=== PATIENT | male | born 1960 | race Caucasian/White ===

== ENCOUNTER 2017-08-19 07:46 | Day surgery (SDC) | payer OTHER ==
[2017-08-19] VITALS (8 sets, daily range): BP systolic 87–139; BP diastolic 53–94; PULSE 56–72; RESP 16–20; TEMP 97.4–98.4; O2SAT 94–98
[~2017-08-19] VITALS: Ht 172.7 cm; Wt 82.0 kg
[~2017-08-19 07:46] MED LIST: FOLI1TAB PO; METH2.5 PO; OMEP20CA5 PO; PERC5TAB12 PO; PROM25SU8 PO; ZEGE20CA PO
[2017-08-19] MEDS ORDERED: FOLI800T PO (08:15)
[2017-08-19] MEDS ORDERED: TOFA5TAB PO (08:15)
[2017-08-19] MEDS ORDERED: METH2.5T PO (08:15)
[2017-08-19] MEDS ORDERED: SODIUM CHLOR 0.9% 1000 ML IV SCH (08:30)
[2017-08-19 09:04] LABS: AUTOMATED NEUTROPHIL # 4.2 TH/MM3 (1.8-7.7); BASOPHIL % 0.2 % (0.0-2.0); EOSINOPHIL # 0.1 TH/MM3 (0-0.4); EOSINOPHIL % 2.2 % (0.0-4.0); HEMATOCRIT 44.1 % (39.0-51.0); HEMO FLAGS DIFF FINAL; LYMPH % 22.6 % (9.0-44.0); LYMPHOCYTE # 1.5 TH/MM3 (1.0-4.8); MEAN CORPUSCULAR HEMOGLOBIN 31.2 PG (27.0-34.0); MEAN CORPUSCULAR HGB CONC 32.9 % (32.0-36.0); PLATELET COUNT 138 TH/MM3 (150-450); RED BLOOD COUNT 4.64 MIL/MM3 (4.50-5.90); WHITE BLOOD COUNT 6.6 TH/MM3 (4.0-11.0)
[2017-08-19 09:10] LABS: APTT (PATIENT) 25.9 SEC (24.3-30.1); PROTHROMBIN TIME - PATIENT 10.5 SEC (9.8-11.6)
[2017-08-19] MEDS ORDERED: LIDOCAINE HCL 1% 20 ML VIAL ONE (10:04)
[2017-08-19] MEDS ORDERED: MIDAZOLAM HCL 5 MG/5 ML VIAL ONE (10:08)
--- NOTE | 2017-08-19 11:13 | PD.RAD ---
Post CT Procedure Prog Note Pre Procedure Diagnosis: (1) Mass of left lung Post Procedure Diagnosis: (1) Mass of left lung Procedure Date: Aug 19, 2017 Supervising Radiologist: Melecio Russo JR Anesthesia: Conscious Sedation Plan of Activity Patient to Unit: [facility] Patient Condition: Good See PACS Report for procedural detail/treatment Biopsy Imaging Guidance: CT Side: Left Biopsy Procedure: Lung Specimen: Core Biopsy Findings: 3 core samples of left upper lobe lung mass. No PTX or hemorrhage on post bx CT images Plan F/U with Dr Easton for results. Jr. Karan,Melecio Vaughn MD Aug 19, 2017 11:13
[2017-08-19] MEDS ORDERED: oxyCODONE/ACETAMINOPHEN 5 MG/325 MG TAB PO PRN (11:15)
--- NOTE | 2017-08-19 13:37 | RADRPT ---
EXAM DATE/TIME: 08/19/2017 13:06 [facility] COMPARISON: No previous studies available for comparison. INDICATIONS : Evaluate for pneumothorax. Status post left lung biopsy. MEDICAL HISTORY : None. SURGICAL HISTORY : None. ENCOUNTER: Initial ACUITY: 1 day PAIN SCORE: 0/10 LOCATION: chest FINDINGS: A single frontal expiratory view of the chest was performed. The lungs are symmetrically aerated and clear. No evidence of pneumothorax. Mediastinal structures are in the midline. The cardio-mediastinal contours and bronchopulmonary markings are unremarkable for an expiratory exam . Osseous structures are intact. CONCLUSION: Negative for pneumothorax. Teja Reyez MD FACR on August 19, 2017 at 13:35 Board Certified Radiologist. This report was verified electronically.
--- NOTE | 2017-08-19 15:57 | RADRPT ---
EXAM DATE/TIME: 08/19/2017 10:38 [facility] COMPARISON: No previous studies available for comparison. INDICATIONS : Left lung mass. SEDATION TIME: 30 minutes BIOPSY SITE: Left chest MEDICATION(S): 1.) 3.5 mg midazolam (Versed) IV 2.) 150 mcg fentanyl (Sublimaze) IV DEVICE(S): 1.) 19 gauge micropuncture introducer 2.) 20 gauge Temno core biopsy needle MEDICAL HISTORY : Rheumatoid arthritis. SURGICAL HISTORY : None. ENCOUNTER: Initial ACUITY: 1 day PAIN SCORE: 0/10 LOCATION: Left chest A total of three core specimen(s) were obtained and sent to the laboratory for pathologic evaluation. PROCEDURE: 1. CT guided lung biopsy. Prior to the procedure informed consent was obtained. Any appropriate prior imaging studies were rev iewed. A left upper lobe anterior lesion was targeted during the biopsy. This lesion measures approxi mately 4 x 3 cm. Using automated exposure control and adjustment of the mA and/or kV according to pat ient size, radiation dose was kept as low as reasonably achievable to obtain optimal diagnostic quali ty images. DICOM format image data is available electronically for review and comparison. The site was prepped in a sterile fashion. Full sterile technique was used, including cap, mask, greta rile gloves and gown and a large sterile sheet. Hand hygiene and 2% chlorhexidine and/or betadine/al cohol prep was utilized per protocol for cutaneous antisepsis. The skin and subcutaneous tissues wer e infiltrated with local anesthetic solution. With CT guidance the previously identified target was localized. Biopsy was performed using the presc ribed needle as above. Adequate hemostasis was obtained with compression at the puncture site. Follow-up CT scan reveals no pneumothorax. Conscious sedation was performed with the prescribed dosages and duration as above in the presence of an independent trained radiology nurse to assist in the monitoring of the patient. EKG and oximetry remained stable throughout the procedure. The patient tolerated the procedure well and there were no complications. The patient was sent to Radiology Outpatient Unit in stable condition. CONCLUSION: Uncomplicated CT guided biopsy of an anterior left upper lobe lesion. Melecio Russo Jr., MD on August 19, 2017 at 15:54 Board Certified Radiologist. This report was verified electronically.
== END 2017-08-19 15:30 | disposition home or self-care (01) ==
LOC: HRAD 07:46 → HRIP 07:47 → HRAD 15:30
PROVIDERS: ATTEND Internal Medicine Critical Care Medicine
DX: C34.12 Malignant neoplasm of upper lobe, left bronchus or lung (principal); J84.10 Pulmonary fibrosis, unspecified; M06.9 Rheumatoid arthritis, unspecified; Z01.818 Encounter for other preprocedural examination
CPT/HCPCS: 32405; 71010; 77012; 85025; 85610; 85730; 88305; 88341; 88342; J2250; J3010; J7030

== ENCOUNTER 2017-09-02 09:47 | Day surgery (SDC) | payer OTHER ==
[~2017-09-02 09:47] MED LIST changes: -FOLI1TAB PO; +FOLI800T PO; -METH2.5 PO; +METH2.5T PO; -OMEP20CA5 PO; -PERC5TAB12 PO; -PROM25SU8 PO; +TOFA5TAB PO; -ZEGE20CA PO
[2017-09-02 10:05] VITALS: BP 126/85; PULSE 65; RESP 18; TEMP 97.6; O2SAT 98
[2017-09-02] MEDS ORDERED: BOSW5TAB PO (10:09)
[2017-09-02] MEDS ORDERED: FISH1000 (10:09)
[2017-09-02] MEDS ORDERED: SODIUM CHLOR 0.9% 1000 ML IV SCH (11:00)
[2017-09-02] MEDS ORDERED: MIDAZOLAM HCL 2 MG/2 ML VIAL ONE (12:10)
[2017-09-02] MEDS ORDERED: LIDOCAINE 1%/EPINEPHrine 1:100,000 SOLN 20 ML VIAL ONE (12:37)
--- NOTE | 2017-09-02 12:49 | PD.RAD ---
Post CT Procedure Prog Note Pre Procedure Diagnosis: (1) Mass of left lung Post Procedure Diagnosis: (1) Mass of left lung Procedure Date: Sep 02, 2017 Supervising Radiologist: Remington Edward Anesthesia: Conscious Sedation Plan of Activity Patient to Unit: [facility] Patient Condition: Good See PACS Report for procedural detail/treatment Remington Edward MD Sep 02, 2017 12:49
[2017-09-02 13:00] VITALS: BP 118/63; PULSE 69; RESP 20; TEMP 97.7; O2SAT 98
[2017-09-02 13:15] VITALS: BP 105/58; PULSE 70; RESP 18; O2SAT 95
[2017-09-02 13:45] VITALS: BP 100/63; PULSE 70; RESP 20; O2SAT 97
--- NOTE | 2017-09-02 13:51 | RADRPT ---
EXAM DATE/TIME: 09/02/2017 12:26 [facility] COMPARISON: No previous studies available for comparison. INDICATIONS : PET positive right iliac bone mass SEDATION TIME: 15 minutes BIOPSY SITE: Right iliac MEDICATION(S): 1.) 3.5 mg midazolam (Versed) IV 2.) 175 mcg fentanyl (Sublimaze) IV DEVICE(S): 1.) 12 gauge On-Control needle MEDICAL HISTORY : Carcinoma, lung. SURGICAL HISTORY : None. ENCOUNTER: Initial ACUITY: 1 day PAIN SCORE: 0/10 LOCATION: Right iliac A total of one core specimen(s) were obtained and sent to the laboratory for pathologic evaluation. PROCEDURE: 1. CT guided iliac biopsy. Prior to the procedure informed consent was obtained. Any appropriate prior imaging studies were rev iewed. Using automated exposure control and adjustment of the mA and/or kV according to patient size, radiat ion dose was kept as low as reasonably achievable to obtain optimal diagnostic quality images. DICOM format image data is available electronically for review and comparison. The site was prepped in a sterile fashion. Full sterile technique was used, including cap, mask, greta rile gloves and gown and a large sterile sheet. Hand hygiene and 2% chlorhexidine and/or betadine/al cohol prep was utilized per protocol for cutaneous antisepsis. The skin and subcutaneous tissues wer e infiltrated with local anesthetic solution. With CT guidance the previously identified target was localized. Biopsy was performed using the presc ribed needle as above. Adequate hemostasis was obtained with compression at the puncture site. Follow-up CT scan reveals no hemorrhage or other complication. The patient tolerated the procedure well and there were no complications. The patient was returned to the Radiology Outpatient Unit in stable condition. CONCLUSION: Uncomplicated CT guided biopsy. Remington Edward MD on September 02, 2017 at 13:49 Board Certified Radiologist. This report was verified electronically.
[2017-09-02 14:15] VITALS: BP 117/64; PULSE 68; RESP 20; O2SAT 96
[2017-09-02 14:45] VITALS: BP 120/64; PULSE 80; RESP 20; O2SAT 96
== END 2017-09-02 15:15 | disposition home or self-care (01) ==
LOC: HRIP 09:47 → HRAD 09:47
PROVIDERS: ATTEND Internal Medicine Critical Care Medicine
DX: M89.9 Disorder of bone, unspecified (principal); Z85.118 Personal history of other malignant neoplasm of bronchus and lung
CPT/HCPCS: 20220; 77012; 88305; 88341; 88342; 99152; J2250; J3010; J7030

== ENCOUNTER 2017-09-22 09:55 | Day surgery (SDC) | payer OTHER ==
[~2017-09-22] VITALS: Ht 172.7 cm; Wt 80.5 kg
[~2017-09-22 09:55] MED LIST changes: +BOSW5TAB PO; +FISH1000
[2017-09-22 10:13] VITALS: BP 128/94; PULSE 80; RESP 20; TEMP 97.5; O2SAT 98
[2017-09-22 10:56] LABS: AUTOMATED NEUTROPHIL # 3.6 TH/MM3 (1.8-7.7); BASOPHIL % 0.2 % (0.0-2.0); EOSINOPHIL # 0.1 TH/MM3 (0-0.4); HEMATOCRIT 41.4 % (39.0-51.0); HEMO FLAGS DIFF FINAL; LYMPH % 17.4 % (9.0-44.0); LYMPHOCYTE # 0.9 TH/MM3 (1.0-4.8); MEAN CELL VOLUME 95.2 FL (80.0-100.0); MEAN CORPUSCULAR HEMOGLOBIN 32.1 PG (27.0-34.0); MEAN CORPUSCULAR HGB CONC 33.7 % (32.0-36.0); MONO % 11.2 % (0.0-8.0); NEUT % 69.2 % (16.0-70.0); PLATELET COUNT 141 TH/MM3 (150-450); RED BLOOD COUNT 4.35 MIL/MM3 (4.50-5.90); RED CELL DISTRIBUTION WIDTH 13.4 % (11.6-17.2); WHITE BLOOD COUNT 5.2 TH/MM3 (4.0-11.0)
[2017-09-22] MEDS ORDERED: VANCOMYCIN 1000 MG/NS 250 ML - implanted port/tunneled catheter IV SCH ×2 (11:00)
[2017-09-22] MEDS ORDERED: POVIDONE IODINE 5% (ANTISEPSIS KIT) 4 APPLICATIONS EACH NARE SCH (11:00)
[2017-09-22] MEDS ORDERED: CHLORHEXIDINE GLUCONATE 2 % 1 PACK (2 CLOTHS) TOPICAL SCH (11:00)
[2017-09-22] MEDS ORDERED: ceFAZolin 2 GM PREMIX 50 ML - implanted port/tunneled catheter insertion IV SCH (11:00)
[2017-09-22] MEDS ORDERED: SODIUM CHLORIDE 0.9% 1000 ML IV SCH (11:00)
[2017-09-22 11:05] LABS: APTT (PATIENT) 26.4 SEC (24.3-30.1); PROTHROMBIN TIME - PATIENT 10.9 SEC (9.8-11.6)
[2017-09-22] MEDS ORDERED: LIDOCAINE 1%/EPINEPHrine 1:100,000 SOLN 20 ML VIAL ONE (11:23)
[2017-09-22] MEDS ORDERED: MIDAZOLAM HCL 2 MG/2 ML VIAL ONE ×2 (11:26→11:27)
--- NOTE | 2017-09-22 12:20 | PD.RAD ---
Post Procedure Progress Note Pre Procedure Diagnosis: (1) Mass of left lung Post Procedure Diagnosis: (1) Mass of left lung Procedure Date: Sep 22, 2017 Supervising Radiologist: Neftaly Reyez Estimated blood loss: 2cc Anesthesia: Local, Conscious Sedation Plan of Activity Patient to Unit: [facility] Patient Condition: Fair Additional Comments: Port placed via the right IJ Catheter in good position Ok for use. Full dictated report to follow See PACS Report for procedural detail/treatment Neftaly Reyez MD Sep 22, 2017 12:20
[2017-09-22 12:30] VITALS: BP 111/71; PULSE 76; RESP 18; TEMP 97.7; O2SAT 97
[2017-09-22 12:45] VITALS: BP 114/65; PULSE 71; RESP 17; O2SAT 98
[2017-09-22 13:15] VITALS: BP 100/65; PULSE 75; RESP 18; O2SAT 97
[2017-09-22 13:45] VITALS: BP 97/64; PULSE 71; RESP 18; O2SAT 95
[2017-09-22 14:05] VITALS: BP 101/65; PULSE 72; RESP 18; O2SAT 97
--- NOTE | 2017-09-22 16:20 | RADRPT ---
EXAM DATE/TIME: 09/22/2017 11:33 [facility] COMPARISON: No previous studies available for comparison. INDICATIONS : Patient presents with left lobe mass in need of a port placement. MEDICAL HISTORY : RA Left Lung Cancer SURGICAL HISTORY : Endoscopy Left Knee ENCOUNTER: Initial ACUITY: 2 weeks PAIN SCORE: 0/10 FLUORO TIME: 0.4 minutes IMAGE SERIES: 1 SEDATION TIME: 30 minutes ACCESS: Right internal jugular vein SEDATION: 1.) 3.5 mg midazolam (Versed) IV 2.) 175 mcg fentanyl (Sublimaze) IV Prophylactic antibiotics were administered with appropriate pre-procedure timing. Vancomycin within 2 hours of procedure, Ancef (or alternative) within 1 hour of procedure. DEVICE: 1. 8 Arabic single lumen [id number] PROCEDURE : 1. Continuous pulse oximetry and EKG monitoring. 2. Intravenous conscious sedation. 3. Ultrasound guidance for venous access. 4. Fluoroscopic guided implantable central venous port placement. The patient was placed supine. The neck was prepped in sterile fashion. Full sterile technique was u sed, including cap, mask, sterile gloves and gown, and a large sterile sheet. Hand hygiene and 2% ch lorhexidine Betadine was utilized per protocol for cutaneous antisepsis with appropriate dry time for site. Sterile gel and sterile probe cover were utilized for ultrasound guidance. The skin and sub cutaneous tissues were infiltrated with local anesthetic solution. Under direct ultrasound guidance, central venous access was accomplished via the right internal jugul ar vein. The ultrasound images depicting access guidance were stored and saved to PACS for permanent record. A subcutaneous pocket was created using blunt dissection. The port was introduced to the po cket. The catheter tubing was fed through a subcutaneous tunnel to the venotomy site. The catheter tubing was cut to a suitable length and then was introduced through a valved Peel-Away sheath and pos itioned with catheter tubing tip at the cavo-atrial junction level. The pocket incision was closed w ith subcuticular Vicryl suture. Steri-Strips were applied. The port was flushed and locked with hep marquita solution per protocol. Sterile dressing was applied to the site. The patient tolerated the pro cedure well. Conscious sedation was performed with the prescribed dosages and duration as above in the presence of an independent trained radiology nurse to assist in the monitoring of the patient. EKG and oximetry remained stable throughout the procedure. The patient tolerated the procedure well and there were no complications. The patient was sent to post anesthesia recovery in stable condition. CONCLUSION: Uncomplicated ultrasound and fluoroscopic guided implanted central venous port catheter placement as described in detail above. An 8 Arabic Power port was placed. Neftaly Reyez MD on September 22, 2017 at 15:48 Board Certified Radiologist. This report was verified electronically.
== END 2017-09-22 14:25 | disposition home or self-care (01) ==
LOC: HROP 09:55 → HRIP 09:59 → HROP 14:25
PROVIDERS: ATTEND Internal Medicine Hematology & Oncology
DX: Z45.2 Encounter for adjustment and management of vascular access device (principal); C34.12 Malignant neoplasm of upper lobe, left bronchus or lung
CPT/HCPCS: 36561; 76937; 77001; 85025; 85610; 85730; 99152; 99153; C1788; J0690; J1642; J2250; J3010; J3370; J7030; J7050

== ENCOUNTER 2017-10-01 13:39 | Emergency (ER) | payer OTHER ==
[~2017-10-01] VITALS: Ht 172.7 cm; Wt 80.1 kg
[2017-10-01 13:42] VITALS: BP 136/73; PULSE 100; RESP 16; TEMP 98; O2SAT 97
[2017-10-01] MEDS ORDERED: [UNRECOGNIZED DRUG - OTHER] (13:56)
[2017-10-01] MEDS ORDERED: ZOFR8TAB PO (13:56)
[2017-10-01] MEDS ORDERED: CARB5INJ3 (13:56)
[2017-10-01] MEDS ORDERED: BEVA100P (13:56)
[2017-10-01] MEDS ORDERED: POLYETHYLENE GLYCOL 17 GM PKG PO ONE (14:15)
[2017-10-01] MEDS ORDERED: HYDROCORTISONE ACETATE 25 MG SUPP RECTAL ONE (14:15)
[2017-10-01] MEDS ORDERED: ANUC25SU RECTAL (14:16)
[2017-10-01] MEDS ORDERED: MIRA3350 PO (14:16)
[2017-10-01] MEDS ORDERED: ANUSOL TOPICAL (14:16)
--- NOTE | 2017-10-01 14:16 | PD ---
HPI Chief Complaint: GI Complaint Time Seen by Provider: 13:48 Travel History International Travel<30 days: No Contact w/Intl Traveler<30days: No Traveled to known affect area: No History of Present Illness HPI 57-year-old male complains of constipation and rectal pain. Patient has history of non-small cell lung CA with metastases. Patient's on chemotherapy. Patient states that she got chemotherapy last week. Patient started having diarrhea the day after that. Patient states that he has been constipated for the past few days. Patient started having rectal pain for the past 2 days. Patient denies any headache. Patient denies any coughing congestion. Patient denies abdominal pain. Patient states the pain is sharp pain localized to the rectal area. Patient denies any pain radiation. Patient states that he felt a lump around the rectal area. Patient states that he has been taking MiraLAX at home without much relief of constipation. PFSH Past Medical History Autoimmune Disease: Yes (RA) Cancer: Yes (lung left) Cardiovascular Problems: No Chemotherapy: Yes Diabetes: No Diminished Hearing: No Endocrine: No Gastrointestinal Disorders: No Genitourinary: Yes Hepatitis: No Hiatal Hernia: No Hypertension: No Immune Disorder: No Implanted Vascular Access Dvce: Yes (right chest wall) Medical other: No Musculoskeletal: Yes (RHUMATOID ARTHRITIS ) Neurologic: No Psychiatric: No Reproductive: No Respiratory: Yes (lung CA) Immunizations Current: No Thyroid Disease: No Influenza Vaccination: Yes Past Surgical History Abdominal Surgery: No AICD: No Cardiac Surgery: No Ear Surgery: No Endocrine Surgery: No Eye Surgery: No Genitourinary Surgery: No Gynecologic Surgery: No Joint Replacement: No Neurologic Surgery: No Oral Surgery: No Pacemaker: No Thoracic Surgery: No Other Surgery: Yes Social History Alcohol Use: Yes (only once a month) Tobacco Use: No (quit 20 years ago) Substance Use: No Allergies-Medications (Allergen,Severity, Reaction): Coded Allergies: No Known Allergies (Unverified Allergy, Unknown, 10/01/17) Reported Meds & Prescriptions Reported Meds & Active Scripts Active [Anusol Cream] 1 Appl TOPICAL QID Anucort-Hc Supp (Hydrocortisone Acetate Supp) 25 Mg Supp 25 Mg RECTAL TID Miralax Powder (Polyethylene Glycol 3350 Powder) 17 Gm Powd 17 Gm PO DAILY Mix and dissolve one measuring cap-ful (17 grams) in water or juice. Reported Carboplatin Inj (Carboplatin) 10 Mg/Ml Inj Avastin Inj (Bevacizumab) 25 Mg/Ml Inj [Palitaxel] Zofran (Ondansetron HCl) 8 Mg Tab 8 Mg PO TID Osteo Bi-Flex One A Day (Ncgavgini-Iingfkoqkwv-Wbombxq) 1 Tab 1 Tab PO DAILY Fish Oil ([place]-3 Fatty Acids) 340 Mg-1,000 Mg Cap Xeljanz (Tofacitinib) 5 Mg Tab 5 Mg PO BID Review of Systems General / Constitutional: No: Fever Eyes: No: Visual changes HENT: No: Headaches Cardiovascular: No: Chest Pain or Discomfort Respiratory: No: Shortness of Breath Gastrointestinal: Positive: Constipation, No: Abdominal Pain Genitourinary: No: Dysuria Musculoskeletal: No: Pain Skin: No Rash Neurologic: No: Weakness Psychiatric: No: Depression Endocrine: No: Polydipsia Hematologic/Lymphatic: No: Easy Bruising Physical Exam Narrative GENERAL: Well-nourished, well-developed patient. SKIN: Focused skin assessment warm/dry. HEAD: Normocephalic. EYES: No scleral icterus. No injection or drainage. NECK: Supple, trachea midline. No JVD or lymphadenopathy. CARDIOVASCULAR: Regular rate and rhythm without murmurs, gallops, or rubs. RESPIRATORY: Breath sounds equal bilaterally. No accessory muscle use. GASTROINTESTINAL: Abdomen soft, non-tender, nondistended. MUSCULOSKELETAL: No cyanosis, or edema. BACK: Nontender without obvious deformity. No CVA tenderness. Rectal exam: Patient has small external hemorrhoid. No evidence of thrombosis or active bleeding. Data Data Last Documented VS Vital Signs Date Time Temp Pulse Resp B/P (MAP) Pulse Ox O2 Delivery O2 Flow Rate FiO2 10/01/17 13:42 98.0 100 16 136/73 (94) 97 Orders Orders Hydrocortisone Supp (Hemorrhoidal Hc Sup (10/01/17 14:15) Polyethylene Glycol (Miralax) (10/01/17 14:15) Ed Discharge Order (10/01/17 14:17) [facility] Medical Decision Making Medical Screen Exam Complete: Yes Emergency Medical Condition: Yes Differential Diagnosis Differential diagnosis including constipation, impacted stool, internal hemorrhoid, external hemorrhoid. Narrative Course 57-year-old male with constipation and external hemorrhoid. Anusol HC suppository given now. MiraLAX given now. Diagnosis Primary Impression: External hemorrhoid Patient Instructions: General Instructions Additional Instructions: MiraLAX and Anusol HC cream and suppository as directed. Sitz bath as directed. Follow-up with personal physician. Return if worse. Med/Other Pt SpecificInfo: Prescription(s) given Scripts Peg-Electrolytes (Golytely 236 gm) 4,000 Ml Soln 4000 ML PO ONCE for Bowel Cleanser, #1 CONTAINER 0 Refills Prov: Alexander Antonio MD 10/01/17 [Anusol Cream] No Conflict Check 1 APPL TOPICAL QID, #1 TUBE Prov: Alexander Antonio MD 10/01/17 Hydrocortisone Acetate Supp (Anucort-Hc Supp) 25 Mg Supp 25 MG RECTAL TID for Hemorrhoids, #21 SUPP 0 Refills Prov: Alexander Antonio MD 10/01/17 Polyethylene Glycol 3350 Powder (Miralax Powder) 17 Gm Powd 17 GM PO DAILY for Constipation, #1 CAN 0 Refills Mix and dissolve one measuring cap-ful (17 grams) in water or juice. Prov: Alexander Antonio MD 10/01/17 Disposition: 01 DISCHARGE HOME Condition: Stable Alexander Antonio MD Oct 01, 2017 14:16
[2017-10-01] MEDS ORDERED: COLY4000S PO (14:22)
== END 2017-10-01 14:38 | disposition home or self-care (01) ==
LOC: PHED 13:39
DX: C34.92 Malignant neoplasm of unspecified part of left bronchus or lung (principal); K64.4 Residual hemorrhoidal skin tags; Z87.891 Personal history of nicotine dependence
CPT/HCPCS: 99283